=== PATIENT | female | born 1975 | race Caucasian/White ===

== ENCOUNTER 2018-11-30 13:27 | Emergency (ER) | payer OTHER ==
[~2018-11-30] VITALS: Ht 167.6 cm; Wt 73.7 kg
[~2018-11-30 13:27] MED LIST: IBUP-44 PO; WARF-18 PO; WARF7.5T PO
[2018-11-30 13:31] VITALS: BP 113/75
--- NOTE | 2018-11-30 13:38 | NUR ---
PATIENT AMBULATED TO ER BED 11.
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
[2018-11-30] MEDS ORDERED: KETOROLAC 30 MG/ML VIAL IM ONE (14:20)
[2018-11-30] MEDS ORDERED: LIDOCAINE 5% 1 EA PATCH TP SCH (14:27)
--- NOTE | 2018-11-30 15:10 | NUR ---
pt resting in bed, medication has provided slight relief at this time
[2018-11-30 15:22] VITALS: BP 119/80
--- NOTE | 2018-11-30 15:24 | NUR ---
Patient discharged with v/s stable. Written and verbal after care instructions given and explained. Patient alert, oriented and verbalized understanding of instructions. Ambulatory with steady gait. All questions addressed prior to discharge. ID band removed. Patient advised to follow up with PMD. Rx of gabapentin, ibuprofen, lidocaine patch 5% given. Patient educated on indication of medication including possible reaction and side effects. Opportunity to ask questions provided and answered.
== END 2018-11-30 15:24 | disposition home or self-care (01) ==
LOC: MED 13:27
DX: M54.41 Lumbago with sciatica, right side (principal); J45.909 Unspecified asthma, uncomplicated; Z79.01 Long term (current) use of anticoagulants; Z79.1 Long term (current) use of non-steroidal anti-inflammatories (NSAID)
CPT/HCPCS: 81002; 81025; 96372; 99283; J1885

== ENCOUNTER 2021-09-27 08:47 | Emergency (ER) | payer OTHER ==
[~2021-09-27] VITALS: Ht 170.2 cm; Wt 80.7 kg
[~2021-09-27 08:47] MED LIST changes: -WARF-18 PO; +WARF-83 PO; -WARF7.5T PO; +WARF7.5T23 PO
[2021-09-27 08:51] VITALS: BP 125/82
--- NOTE | 2021-09-27 09:02 | NUR ---
pt c/o sore throat x5 days with fever. hx of strept throat states feels similar.
[2021-09-27] MEDS: ACETAMINOPHEN 325 MG TAB PO ONE (09:53)
--- NOTE | 2021-09-27 10:31 | NUR ---
swabbed for strept and walked to lab
[2021-09-27] MEDS ORDERED: ACET-8386 PO (11:19)
[2021-09-27 11:24] VITALS: BP 117/65
== END 2021-09-27 11:25 | disposition home or self-care (01) ==
LOC: MED 08:47
DX: J02.9 Acute pharyngitis, unspecified (principal); J45.909 Unspecified asthma, uncomplicated; Z79.899 Other long term (current) drug therapy
CPT/HCPCS: 87081; 99283

== ENCOUNTER 2022-08-18 15:08 | Emergency (ER) | payer OTHER ==
[~2022-08-18] VITALS: Ht 172.7 cm; Wt 72.6 kg
[~2022-08-18 15:08] MED LIST changes: +ACET-8905 PO
[2022-08-18 15:20] VITALS: BP 121/79
--- NOTE | 2022-08-18 15:46 | NUR ---
PT AMB TO BED 2.
[2022-08-18] MEDS ORDERED: LIDOCAINE 5% 1 EA PATCH TP STA (16:00)
[2022-08-18] MEDS ORDERED: KETOROLAC 30 MG/ML VIAL IM ONE (16:00)
[2022-08-18] MEDS ORDERED: LIDO1ADH38 TP (16:54)
[2022-08-18] MEDS ORDERED: IBUP-2213 PO (16:54)
[2022-08-18] MEDS ORDERED: ACET-8905 PO (16:54)
[2022-08-18] MEDS ORDERED: LIDOCAINE 5% 1 EA PATCH TP ONE (17:20)
[2022-08-18] MEDS ORDERED: KETOROLAC 30 MG/ML VIAL ONE (17:21)
[2022-08-18] MEDS ORDERED: TRAM-748 PO (17:36)
[2022-08-18 17:44] LABS: APPEARANCE,URINE CLEAR (CLEAR); BILIRUBIN,URINE NEGATIVE (NEGATIVE); BLOOD, URINE NEGATIVE (NEGATIVE); COLOR,URINE YELLOW (YELLOW); LEUKOCYTE ESTERASE ,URINE TRACE (NEGATIVE); NITRITE, URINE NEGATIVE (NEGATIVE); UGLUCOSE NEGATIVE (NEGATIVE)
[2022-08-18 17:53] VITALS: BP 117/83
--- NOTE | 2022-08-18 17:53 | NUR ---
Patient discharged with v/s stable. Written and verbal after care instructions given. Patient alert, oriented and verbalized understanding of instructions. Ambulatory with steady gait. All questions addressed prior to discharge. ID band removed. Patient advised to follow up with PMD. Rx of Ibuprofen, Lidocaine and Ultram given. Opportunity to ask questions provided and answered.
[2022-08-18 17:56] LABS: OTHER CASTS, URINE None Seen /LPF (None Seen); RBC,URINE 0-5 /HPF (0-5); WBC,URINE 0-5 /HPF (0-5)
== END 2022-08-18 17:53 | disposition home or self-care (01) ==
LOC: MED 15:08
DX: G89.29 Other chronic pain (principal); M54.2 Cervicalgia; M54.9 Dorsalgia, unspecified; M79.672 Pain in left foot; J45.909 Unspecified asthma, uncomplicated; Z79.899 Other long term (current) drug therapy
CPT/HCPCS: 81001; 81025; 96372; 99283; J1885

== ENCOUNTER 2023-05-20 08:15 | Emergency (ER) | payer OTHER ==
[~2023-05-20] VITALS: Ht 167.6 cm; Wt 78.0 kg
[~2023-05-20 08:15] MED LIST changes: +IBUP-2213 PO; +LIDO1ADH38 TP; +TRAM-748 PO
[2023-05-20 08:35] VITALS: BP 146/119; PULSE 73; RESP 18; TEMP 97.6; O2SAT 98
[2023-05-20 09:52] LABS: BASOPHILS # (AUTO) 0.1 K/uL (0.00-0.22); BASOPHILS % (AUTO) 1.1 % (0.0-2.0); EOSINOPHILS # (AUTO) 0.4 K/uL (0-0.4); EOSINOPHILS % (AUTO) 4.7 % (0.0-4.0); HEMATOCRIT 42.5 % (36-48); HEMOGLOBIN 14.3 g/dL (12.0-16.0); LYMPHOCYTES # (AUTO) 2.4 K/uL (2.5-16.5); LYMPHOCYTES % (AUTO) 30.6 % (20.5-51.1); MEAN CORPUSCULAR HEMOGLOBIN 30 pg (27-31); MEAN CORPUSCULAR HGB CONC 34 g/dL (33-37); MONOCYTES # (AUTO) 0.4 K/uL (0.8-1.0); NEUTROPHILS # (AUTO) 4.5 K/uL (1.8-7.7); NEUTROPHILS % (AUTO) 58.6 % (42.2-75.2); PLATELET COUNT (AUTO) 263 K/uL (140-450); RED BLOOD CELL COUNT(AUTO) 4.77 MIL/uL (4.20-5.40); RED CELL DISTRIBUTION WIDTH 13.3 % (11.6-13.7); WHITE BLOOD COUNT (AUTO) 7.7 K/uL (4.8-10.8)
[2023-05-20 10:03] LABS: ANION GAP 12.3 (8-16); CALCIUM 8.4 mg/dL (8.5-10.1); CARBON DIOXIDE 25.6 mmol/L (21-32); CREATININE 0.7 mg/dL (0.6-1.3); POTASSIUM 3.9 mmol/L (3.5-5.1)
[2023-05-20] MEDS ORDERED: KETOROLAC 30 MG/ML VIAL IM ONE (10:30)
[2023-05-20] MEDS ORDERED: ACETAMINOPHEN EXTRA STRENGTH 500 MG TAB PO ONE (10:30)
[2023-05-20 11:25] VITALS: BP 146/119; PULSE 73; RESP 18; TEMP 97.6; O2SAT 98
== END 2023-05-20 11:26 | disposition home or self-care (01) ==
LOC: MED 08:15
DX: S13.4XXA Sprain of ligaments of cervical spine, initial encounter (principal); S06.0X0A Concussion without loss of consciousness, initial encounter; R07.89 Other chest pain; J45.909 Unspecified asthma, uncomplicated; Z79.899 Other long term (current) drug therapy; Z79.1 Long term (current) use of non-steroidal anti-inflammatories (NSAID); Z79.01 Long term (current) use of anticoagulants; V89.2XXA Person injured in unspecified motor-vehicle accident, traffic, initial encounter; Y93.89 Activity, other specified; Y92.410 Unspecified street and highway as the place of occurrence of the external cause; Y99.8 Other external cause status
CPT/HCPCS: 36415; 70450; 71250; 72125; 74176; 80048; 81025; 84484; 85025; 93005; 96372; 99285; J1885